=== PATIENT | female | born 1950 | race Caucasian/White ===

== ENCOUNTER 2021-08-11 17:36 | Emergency (ER) | payer MEDICARE ==
[~2021-08-11] VITALS: Ht 167.6 cm; Wt 98.6 kg
[2021-08-11] MEDS: IV NORMAL SALINE 1,000ML 1,000 ML IV SCH (17:45)
--- NOTE | 2021-08-11 18:04 | PHYS DOC ---
General Adult EDM: Chief Complaint: FEVER HPI: HPI: Patient is a 7-year-old female who presents to the emergency department for fever, nausea, loss of smell and diarrhea. Patient has a positive Covid exposure. Patient reports that her temperature at home was 102.8. Patient is afebrile in the emergency department. She states that she has been taking Tylenol and ibuprofen at home. She denies abdominal pain, urinary symptoms, b lood in her stools, shortness of breath. Patient's vital signs are stable in the emergency department she is in no acute distress. (DADA DE LEON APRN) Review of Systems: Review of Systems: Constitutional: See HPI HENT: See HPI Respiratory: See HPI GI: See HPI : See HPI (DADA DE LEON APRN) Current Medications: Current Meds: Current Medications Medications (Trade) Dose Ordered Sig/Meka Start Time Stop Time Status Last Admin Dose Admin Sodium Chloride 1,000 ml @ 1,000 mls/hr Q1H 08/11/21 17:45 08/11/21 18:44 UNV (DADA DE LEON APRN) Physical Exam: PE: Constitutional: Well developed, well nourished, no acute distress, non-toxic appearance. [] HENT: Normocephalic, atraumatic, bilateral external ears normal, oropharynx moist, no oral exudates, nose normal. [] Eyes: PERRL, EOMI, conjunctiva normal, no discharge. [] Neck: Normal range of motion, no tenderness, supple, no stridor. [] Cardiovascular:Heart rate tachycardia rhythm, no murmur [] Lungs & Thorax: Bilateral breath sounds clear to auscultation [] Abdomen: Bowel sounds normal, soft, no tenderness, no masses, no pulsatile masses. [] Skin: Warm, dry, no erythema, no rash. [] Back: Normal range of motion Extremities: No tenderness, no cyanosis, no clubbing, ROM intact, no edema. [] Neurologic: Alert and oriented X 3, normal motor function, normal sensory function, no focal deficits noted. [] Psychologic: Affect normal, judgement normal, mood normal. [] (DADA DE LEON APRN) EKG: EKG: EKG performed by ER staff at 1756 shows sinus tachycardia with PACs, no STEMI read by Dr. Riojas at 1801. [] (DADA DE LEON APRN) Radiology/Procedures: Radiology/Procedures: [] (DADA DE LEON APRN) Heart Score: C/O Chest Pain: N/A Risk Factors: Risk Factors: DM, Current or recent (<one month) smoker, HTN, HLP, family history of CAD, obesity. Risk Scores: Score 0 - 3: 2.5% MACE over next 6 weeks - Discharge Home Score 4 - 6: 20.3% MACE over next 6 weeks - Admit for Clinical Observation Score 7 - 10: 72.7% MACE over next 6 weeks - Early Invasive Strategies (DADA DE LEON APRN) Course & Med Decision Making: Course & Med Decision Making Pertinent Labs and Imaging studies reviewed. (See chart for details) Patient presents to the emergency department for fever, loss of smell, nausea and diarrhea. Patient had a positive Covid exposure. Patient's work-up in the ER consisted of blood work, urinalysis. Patient Covid test will be notified of those results when they become available in approximately 2 days. Patient was treated with IV fluids and nausea medication. Patient's vital signs are stable and she is in no acute distress. Patients heart rate has improved and it is 95bpm. I discussed patients case with MONISHA Fletcher, car transferred. (DADA DE LEON APRN) Course & Med Decision Making Potassium decreased at 3.0. potassium was treated with p.o. potassium. All other labs unremarkable. Discussed with patient all findings and diagnostics. Patient most likely also has Covid due to her recent exposure and symptoms. Discussed return precautions in length. Advised patient it would be 2 to 3 days before Covid results were resulted. Patient sent home with nausea medication. Discussed self quarantining until results have returned.Patient voiced understanding and agreement with plan. Patient is hemodynamically stable upon disposition. (HOLLY MOLINA APRN) Dragon Disclaimer: Dragon Disclaimer: This electronic medical record was generated, in whole or in part, using a voice recognition dictation system. (DADA DE LEON APRN) Attending Co-Sign The patient was seen and interviewed as well as examined at the bedside. The chart was reviewed. The case was discussed. Agree with the plan of care. (DIANNA OLIVER DO) Departure Departure: Impression: Primary Impression: Person under investigation for COVID-19 Disposition: 01 HOME / SELF CARE / HOMELESS Condition: GOOD Referrals: CAN MA DO (PCP) Patient Instructions: Fever, Adult, [id number] Additional Instructions: You were seen in the emergency room for fever and recent exposure to Covid. We were tested for Covid but it will take 2 to 3 days to receive results. Please self quarantine until results have returned. Ibuprofen and Tylenol for fever and pain. Return to the emergency room if you have worsening symptoms or concerns. EMERGENCY DEPARTMENT GENERAL DISCHARGE INSTRUCTIONS Thank you for coming to [facility] (ED) today and trusting us with you care. We trust that you had a positivie experience in our Emergency Department. If you wish to speak to the department management, you may call the director at [phone]. YOUR FOLLOW UP INSTRUCTIONS ARE FOLLOWS: 1. Do you have a private Doctor? If you do not have a private doctor, please ask for a resource list of physicians or clinics that may be able to assist you with follow up care. 2. The Emergency Physician has interpreted your x-rays. The X-Ray specialist will also review them. If there is a change in the findings, you will be notified in 48 hours when at all possible. 3. A lab test or culture has been done, your results will be reviewed and you will be notified if you need a change in treatment. ADDITIONAL INSTRUCTIONS AND INFORMATION: 1. Your care today has been supervised by a physician who is specially trained in emergency care. Many problems require more than one evaluation for a complete diagnosis and treatment. We recommend that you schedule your follow up appointment as recommended to ensure complete treatment of you illness or injury. If you are unable to obtain follow up care and continue to have a problem, or if your condition worsens, we recommend that you return to the ED. 2. We are not able to safely determine your condition over the phone nor are we able to give sound medical advice over the phone. For these safety reasons, if you call for medical advice we will ask you to come to the ED for further evaluation. 3. If you have any questions regarding these discharge instructions please call the ED at [phone]. SAFETY INFORMATION: In the interest of safety, wellness, and injury prevention; we encourage you to wear your sealbelt, if you smoke; quite smoking, and we encourage family to use a protective helmet for bicycling and other sporting events that present an increased risk for head injury. IF YOUR SYMPTOMS WORSEN OR NEW SYMPTOMS DEVELOP, OR YOU HAVE CONCERNS ABOUT YOUR CONDITION; OR IF YOUR CONDITION WORSENS WHILE YOU ARE WAITING FOR YOUR FOLLOW UP APPOINTMENT; EITHER CONTACT YOUR PRIMARY CARE DOCTOR, THE PHYSICIAN WHOSE NAME AND NUMBER YOU WERE GIVEN, OR RETURN TO THE ED IMMEDIATELY. You have been tested for or diagnosed with COVID-19. It is an infection caused by a new type of coronavirus. COVID-19 will cause cold-like or mild flu symptoms in most. It can cause more severe symptoms like problems breathing in some. There is no treatment for COVID-19. The body will clear the infection over time. Self-care will help to ease discomfort. Steps to Take: Self-Care Rest as needed. Healthy habits may help you feel better. Steps include: Choose healthy foods including fruits and vegetables. Drink water throughout the day. Get plenty of sleep each night. If you smoke, try to quit. It may ease breathing. Avoid alcohol. Keep Others Healthy The virus can spread to others. Droplets are released every time you sneeze or cough. The droplets can get into the mouth, nose, or eyes of people near you and lead to infection. To lower the chances of spreading COVID-19 to others: Stay at home until your doctor has said it is safe to leave. If you tested positive this will mean staying isolated until both of the following are true: At least 7 days have passed since the start of illness. You are free of fever for at least 72 hours without the use of medicine. During this time: - Avoid public areas, events, or transportation. Do not return to work or school until your doctor has said it is safe to do so. - Call ahead if you need to go to a medical center. Let them know you may have COVID-19. It will help them guide you where to go. They may also ask you to wear a facemask when you come to the office. - If you call for emergency medical services, let them know you may have COVID- 19. While at home: - Try to avoid close contact with others. Stay about 6 feet away. - If possible, spend most of your time in a separate room from others. - Use a face mask if you will be in close contact with others such as sharing a room or vehicle. - Have someone wipe down common surfaces in the home. Use household manager maritime every day on areas like doorknobs, counters, or sinks. - Cough or sneeze into a tissue. Throw the tissue away right after use. If a tissue is not available, cough or sneeze into your elbow. - Wash your hands often. Wash them after sneezing or coughing. Use soap and water and wash for at least [address] seconds[address] Alcohol based hand street light cleaner can be used if soap and water is not available. - Do not prepare food for others. Avoid sharing personal items like forks, spoons, or toothbrushes. - Avoid close contact with pets while you are sick. There is no evidence of the virus passing to pets. This is a safety step until more is known about this virus. Isolation can be frustrating. Social interaction can help. Keep in touch with friends and family through phone and tech options. You can still interact with others in your home, just keep a safe distance of about 6 feet. Follow-up: Your doctors office will check in with you to see if there are any changes in your health. You may be asked to keep track of symptoms to share with them. They will also let you know when you are clear to be in public again. Problems to Look Out For: Contact your doctor if your recovery is not going as you expect. Get emergency care if you have problems such as: - Trouble breathing - Nonstop chest pain or pressure - Changes in awareness, confusion, or problems waking - Lips or face have bluish color - Worsening of symptoms If you think you have an emergency, call for emergency medical services right away. As taken from [facility] Prochlorperazine Maleate (Compazine) 10 Mg Tablet 1 TAB PO Q6HRS for nausea for 7 Days, #28 TAB 0 Refills Prov: HOLLY MOLINA APRN 08/11/21 DADA DE LEON APRN Aug 11, 2021 18:04 HOLLY MOLINA APRN Aug 11, 2021 19:56 DIANNA OLIVER DO Aug 12, 2021 05:57
--- NOTE | 2021-08-11 18:16 | EKG ---
[address] [address] Test Date: 2021-08-11 Test Time: 17:56:15 Pat Name: ALEJANDRO FEED MIXER Department: Room: Gender: F Sports Rec[employer]iter: EVANS : 1950 Requested By: DADA DE LEON Order Number: [id number] Reading MD: Stephen Arzate Measurements Intervals [place] Rate: 125 P: [place]: QRS: 42 QRSD: 118 T: 73 QT: 344 QTc: 499 Interpretive Statements RAPID ATRIAL FIBRILLATION NON SPECIFIC ST-T WAVE CHANGES ABNORMAL ECG RI6.02 No previous ECG available for comparison Electronically Signed On 08-17-2021 10:19:05 [employer]IVE [employer] INTERN by Stephen Arzate
[2021-08-11] MEDS: PROCHLORPERAZINE 10 MG/2 ML VIAL. IV ONE (19:00)
[2021-08-11 19:16] LABS: BASO % 0 % (0-3); EOS % 0 % (0-3); HEMATOCRIT 42.9 % (36.0-47.0); HEMOGLOBIN 13.9 g/dL (12.0-15.5); LYMPH # 0.5 x10^3/uL (1.0-4.8); LYMPH % 9 % (24-48); MEAN CORPUSCULAR HEMOGLOBIN 28 pg (25-35); MEAN CORPUSCULAR HGB CONC 33 g/dL (31-37); MEAN CORPUSCULAR VOLUME 87 fL (79-100); MONO # 0.4 x10^3/uL (0.0-1.1); MONO % 7 % (0-9); NEUT # 4.8 x10^3uL (1.8-7.7); NEUT % 84 % (31-73); PLATELET COUNT 196 x10^3/uL (140-400); RED BLOOD COUNT 4.93 x10^6/uL (3.50-5.40); RED CELL DISTRIBUTION WIDTH 14.3 % (11.5-14.5); WHITE BLOOD COUNT 5.8 x10^3/uL (4.0-11.0)
[2021-08-11 19:29] LABS: CALCIUM 8.4 mg/dL (8.5-10.1); CREATININE 1.4 mg/dL (0.6-1.0); GFR 37.2
[2021-08-11 19:35] LABS: ALBUMIN 3.2 g/dL (3.4-5.0); ALBUMIN/GLOBULIN RATIO 0.7 (1.0-1.7); TOTAL BILIRUBIN 0.3 mg/dL (0.2-1.0); TOTAL PROTEIN 7.8 g/dL (6.4-8.2)
[2021-08-11] MEDS: POTASSIUM CHLORIDE 20 MEQ TABLET.ER. PO ONE (19:45)
[2021-08-11 20:23] LABS: BILIRUBIN,URINE NEG (NEG); CLARITY,URINE HAZY; COLOR,URINE YELLOW; GLUCOSE,URINE NEG (NEG)
[2021-08-11 20:24] LABS: NITRITE,URINE NEG (NEG); SQUAMOUS EPITHELIAL CELL,UR MOD /LPF; UROBILINOGEN,URINE 0.2 mg/dL (0.2 mg/dL)
[2021-08-11 20:27] LABS: BACTERIA,URINE FEW /HPF (0-FEW); RBC,URINE RARE /HPF (0-2)
[2021-08-11] MEDS ORDERED: PROC10TA57 PO (20:34)
[2021-08-11] MEDS ORDERED: ONDANSETRON PF 4 MG/2 ML VIAL. ONE (20:42)
[2021-08-11] MEDS: ONDANSETRON PF 4 MG/2 ML VIAL. IVP ONE (20:45)
[2021-08-11 20:48] VITALS: BP 155/73
== END 2021-08-11 20:50 | disposition home or self-care (01) ==
LOC: ER 17:36
DX: U07.1 COVID-19 (principal); R50.9 Fever, unspecified; R19.7 Diarrhea, unspecified
CPT/HCPCS: 36415; 80053; 81001; 85025; 87086; 93005; 96361; 96374; 96375; 99284; C9803; J0780; J2405; J7030; U0003